=== PATIENT | male | born 2000 | race Two or more races ===

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

== ENCOUNTER 2018-08-13 13:36 | Emergency (ER) | payer MEDICAID ==
[2018-08-13 13:44] VITALS: BP 132/83
--- NOTE | 2018-08-13 14:00 | EDPHY ---
H & P Time Seen by Provider: 08/13/18 13:43 HPI/ROS: 17 yo M presents c/o bilateral eye drainage, crusting this morning, now with no drainage and minimal redness. He states his allergies have been terrible the last few weeks. No fever or chills. No unusual exposures. Review of systems as per hpi General no fever no chills no weakness HEENT no eye pain pos eye discharge. No eye redness, no sore throat Respiratory no cough, no shortness of breath Cardiac no chest pain, no peripheral edema GI no abdominal pain, no diarrhea, no constipation, no nausea, no vomiting no flank pain, no hematuria, no dysuria Musculoskeletal no myalgias, no joint pain Heme no easy bruising, no easy bleeding Endo no polyuria, no polydipsia Skin no rashes, no pruritus Neuro no syncope, no dizziness, no headaches Psych is no suicidal ideation, no homicidal ideation Past Medical/Surgical History: seasonal allergies Social History: no alcohol or drugs Smoking Status: Never smoked Physical Exam: 17-year-old male alert and oriented no acute distress nontoxic appearance, afebrile Atraumatic normocephalic Bilateral eyes-extraocular muscles intact, anicteric, no discharge at this time Mild conjunctival erythema and lower lids bilaterally otherwise no erythema, no swelling Nares-mild turbinates swelling Oropharynx no erythema no tonsillar swelling Neck supple No respiratory distress No rash Constitutional: Initial Vital Signs Temperature (C) 36.9 C 08/13/18 13:41 Heart Rate 84 08/13/18 13:41 Respiratory Rate 16 08/13/18 13:41 Blood Pressure 132/83 H 08/13/18 13:41 O2 Sat (%) 98 08/13/18 13:41 O2 Delivery Mode Room Air Allergies/Adverse Reactions: No Known Allergies Allergy (Verified 08/13/18 13:41) Home Medications: Medication Instructions Recorded Claritin 08/13/18 Fluticasone Nasal [Flonase Nasal 2 sprays NASAL DAILY #1 mdi 08/13/18 [place] (RX)] Ketotifen Fumarate [Zaditor] 1 ml OP BID 14 Days #1 btl 08/13/18 Loratadine/Pseudoephedrine 1 each PO DAILY 30 Days #30 08/13/18 [Loratadine-D 24Hr Tablet] tab.er.24h Medical Decision Making ED Course/Re-evaluation: Patient here for itchy eyes and episode of crusting this morning. No stigmata of bacterial conjunctivitis, no purulent drainage, no fever no eye swelling no erythema Impression Allergic conjunctivitis Plan Warm compresses as needed Fluticasone, loratadine, ketotifen Follow-up with primary care Dr Cates Differential Diagnosis: Differential diagnosis considered but not limited to Conjunctivitis-allergic, conjunctivitis-viral, conjunctivitis-bacterial Departure - Departure Disposition: Home, Routine, Self-Care Clinical Impression: Allergic conjunctivitis and rhinitis Condition: Good Instructions: Allergic Rhinitis (ED), Conjunctivitis (ED) Referrals: Cammy Cates MD [Primary Care Provider] - As per Instructions Prescriptions: Fluticasone Nasal [Flonase Nasal [place] (RX)] 2 sprays NASAL DAILY #1 mdi Ketotifen Fumarate [Zaditor] 1 ml OP BID 14 Days #1 btl Loratadine/Pseudoephedrine [Loratadine-D 24Hr Tablet] 1 each PO DAILY 30 Days # 30 tab.er.24h
== END 2018-08-13 14:02 | disposition home or self-care (01) ==
LOC: CED 13:36
DX: H10.9 Unspecified conjunctivitis (principal); J30.9 Allergic rhinitis, unspecified
CPT/HCPCS: 99284-ER